=== PATIENT | male | born 1995 | race Caucasian/White ===

== ENCOUNTER 2018-06-04 11:20 | Emergency (ER) | payer OTHER ==
[~2018-06-04] VITALS: Ht 165.1 cm; Wt 77.1 kg
[~2018-06-04 11:20] MED LIST: IBUP600 PO; ISOT10 PO; Robaxin500 MG PO; TRAACE PO
[2018-06-04] MEDS ORDERED: Voltaren100 GM TOP (13:26)
== END 2018-06-04 13:45 | disposition home or self-care (01) ==
LOC: ER 11:20
DX: S39.012A Strain of muscle, fascia and tendon of lower back, initial encounter (principal); X58.XXXA Exposure to other specified factors, initial encounter
CPT/HCPCS: 99283

== ENCOUNTER 2022-03-08 05:02 | Emergency (ER) | payer OTHER ==
[~2022-03-08] VITALS: Ht 165.1 cm; Wt 90.7 kg
[~2022-03-08 05:02] MED LIST changes: +Voltaren100 GM TOP
[2022-03-08] MEDS ORDERED: Triamcinolone A15 GM TOP (08:00)
== END 2022-03-08 08:03 | disposition home or self-care (01) ==
LOC: ER 05:02
DX: L23.7 Allergic contact dermatitis due to plants, except food (principal)
CPT/HCPCS: J3301

== ENCOUNTER 2024-07-25 18:18 | Emergency (ER) | payer OTHER ==
[~2024-07-25] VITALS: Ht 172.7 cm; Wt 79.4 kg
[~2024-07-25 18:18] MED LIST changes: +Triamcinolone A15 GM TOP
[2024-07-25] MEDS ORDERED: NS 1,000 ML IV SCH (18:30)
[2024-07-25] MEDS ORDERED: Ondansetron HCl 2 MG / ML 2ML Vial IV ONE (18:30)
[2024-07-25 18:50] LABS: Calcium, Ionized (POC) 1.11 mmol/L (1.10-1.46); Chloride (POC) 106 mmol/L (98-108); Creatinine (POC) 0.7 mg/dL (0.8-1.3); Glucose (ISTAT POC) 84 mg/dL (70-99); Hemoglobin (POC) 15.3 g/dL (13.5-17.5); Sodium (POC) 143 mmol/L (135-148); Total CO2 (POC) 25 mmol/L (21-32)
[2024-07-25 20:00] VITALS: BP 117/70
[2024-07-25] MEDS ORDERED: NARCAN4 M1 (20:38)
== END 2024-07-25 21:58 | disposition home or self-care (01) ==
LOC: ER 18:18
PROVIDERS: Emergency Medicine
DX: T40.411A Poisoning by fentanyl or fentanyl analogs, accidental (unintentional), initial encounter (principal)
CPT/HCPCS: 71045; 74018; 80047; 85014; 96361; 96374; 99284-25; J2405; J7030

== ENCOUNTER 2025-09-20 21:27 | Emergency (ER) | payer OTHER ==
[~2025-09-20] VITALS: Ht 165.1 cm; Wt 63.5 kg
[~2025-09-20 21:27] MED LIST changes: +NARCAN4 M1
[2025-09-20 23:10] VITALS: BP 106/75
== END 2025-09-20 23:21 ==
LOC: ER 21:27
DX: S09.90XA Unspecified injury of head, initial encounter (principal); S19.9XXA Unspecified injury of neck, initial encounter; Y35.819A Legal intervention involving manhandling, unspecified person injured, initial encounter
CPT/HCPCS: 70450; 72125; 99284-25